=== PATIENT | male | born 1980 | race Caucasian/White ===

== ENCOUNTER 2017-02-06 07:37 | Emergency (ER) | payer BC ==
[2017-02-06] MEDS ORDERED: LORazepam 0.5 MG Tab PO ONE (07:53)
--- NOTE | 2017-02-06 08:01 | EDM.PDOC ---
ED HPI GENERAL MEDICAL PROBLEM - General Chief Complaint: Behavioral/Psych Stated Complaint: ANXIETY Time Seen by Provider: 02/06/17 07:45 Source of Information: Reports: Patient History Limitations: Reports: No Limitations - History of Present Illness INITIAL COMMENTS - FREE TEXT/NARRATIVE: 36 yo male who is under a lot of stress at work presents with bilateral hand numbness and resolving facial numbness. Is under a lot of stress at work and slept only about 3 hrs last night. Has no hx of anxiety or mental health issues. No PRADO. Onset: Today Onset Date: 02/06/17 Onset Time: 07:00 Duration: Minutes: Location: Reports: Generalized Quality: Reports: Other (no pain) Severity: Moderate Improves with: Reports: None Worsens with: Reports: Other (? stress) Context: Reports: Other (at work, not exerting at time.) Associated Symptoms: Reports: Other (mild dyspnea) Treatments NURSERYPERSON: Reports: Other (see below) (none) - Related Data Home Meds: Home Meds ALPRAZolam [Xanax] 0.5 mg PO Q8H PRN #10 tablet 02/06/17 [Rx] traZODone 50 - 100 mg PO BEDTIME #30 tab 02/06/17 [Rx] ED ROS GENERAL - Review of Systems Review Of Systems: See Below Constitutional: Reports: No Symptoms HEENT: Reports: No Symptoms Respiratory: Reports: Shortness of Breath (mild) Cardiovascular: Reports: No Symptoms Endocrine: Reports: No Symptoms GI/Abdominal: Reports: No Symptoms : Reports: No Symptoms Musculoskeletal: Reports: No Symptoms Skin: Reports: No Symptoms Neurological: Reports: Numbness (hands/face) Psychiatric: Reports: Anxiety ED EXAM, NEURO - Physical Exam Exam: See Below Exam Limited By: No Limitations General Appearance: Alert, WD/WN, Anxious, Mild Distress Eye Exam: Bilateral Eye: Normal Inspection Ears: Normal External Exam, Normal Canal, Hearing Grossly Normal, Normal TMs Nose: Normal Inspection, Normal Mucosa, No Blood Throat/Mouth: Normal Inspection, Normal Lips, Normal Oropharynx, Normal Voice, No Airway Compromise Head Exam: Atraumatic, Normocephalic Neck: Normal Inspection, Supple Respiratory/Chest: No Respiratory Distress, Lungs Clear, No Accessory Muscle Use , Other (mild tachypnea) Cardiovascular: Regular Rate, Rhythm, Tachycardia (slightly tachy) GI/Abdominal: Soft, Non-Tender, No Distention Neurological: Alert, CN II-XII Intact, No Motor/Sensory Deficits, Oriented x 3 Extremities: Normal Inspection, Non-Tender Psychiatric: Anxious Skin Exam: Warm, Dry, Intact, Normal Color, No Rash Course - Vital Signs Last Recorded V/S: Last Vital Signs Temp 36.4 C 02/06/17 07:37 Pulse 102 H 02/06/17 07:37 Resp 24 H 02/06/17 07:37 BP 119/93 H 02/06/17 07:37 Pulse Ox 100 02/06/17 07:37 - Orders/Labs/Meds Orders: Active Orders 24 hr Category Date Time Status BASIC METABOLIC PANEL,BMP [CHEM] Routine Lab 02/06/17 07:40 Received Meds: Medications Discontinued Medications Generic Name Dose Route Start Last Admin Trade Name Jarettq PRN Reason Stop Dose Admin Lorazepam 0.5 mg 02/06/17 07:53 Ativan PO 02/06/17 07:54 ONETIME ONE Departure - Departure Time of Disposition: 08:36 Disposition: Home, Self-Care 01 Condition: Good Clinical Impression: Panic anxiety syndrome Insomnia Qualifiers: Insomnia type: unspecified Qualified Code(s): G47.00 - Insomnia, unspecified - Discharge Information - My Orders Last 24 Hours: My Active Orders 02/06/17 07:40 BASIC METABOLIC PANEL,BMP [CHEM] Routine - Assessment/Plan Last 24 Hours: My Active Orders 02/06/17 07:40 BASIC METABOLIC PANEL,BMP [CHEM] Routine
[2017-02-06] MEDS ORDERED: Potassium Chloride 10 MEQ Tab.ER PO ONE (08:14)
[2017-02-06 11:32] VITALS: BP 118/84
== END 2017-02-06 08:55 | disposition home or self-care (01) ==
LOC: FB.ED 07:37
DX: F41.0 Panic disorder [episodic paroxysmal anxiety] (principal); G47.00 Insomnia, unspecified
CPT/HCPCS: 36415; 80048; 99283; A9270